=== PATIENT | male | born 1955 | race Caucasian/White ===

== ENCOUNTER 2018-01-18 12:10 | Day surgery (SDC) | payer OTHER ==
[2018-01-18] MEDS: TROPICAMIDE 1% 3 ML OPH OPER (13:17)
[2018-01-18] MEDS: CYCLOPENTOLATE 1% 2 ML OPH OPER (13:17)
[2018-01-18] MEDS: PHENYLephrine 2.5% 15 ML OPH OPER (13:17)
[2018-01-18] MEDS: PROPARACAINE 0.5% 15 ML OPH OPER (13:21)
[2018-01-18] MEDS ORDERED: LIDOCAINE 1%/EPI 30 ML INJ (14:09)
[2018-01-18] MEDS ORDERED: TOBRAMYCIN/DEXAMETH 3.5 GM OPH OINT (14:10)
[2018-01-18] MEDS ORDERED: HYDROmorphONE 1 MG/5 ML IV SYRINGE IV (15:00)
[2018-01-18] MEDS: TOBRAMYCIN/DEXAMETH 3.5 GM OPH OINT OPER (15:56)
[2018-01-18] MEDS: HYDROmorphONE 1 MG/5 ML IV SYRINGE IV (16:28)
== END 2018-01-24 10:43 | disposition home or self-care (01) ==
LOC: SDS 01-24 10:43
DX: H11.032 Double pterygium of left eye (principal); E11.9 Type 2 diabetes mellitus without complications; E78.5 Hyperlipidemia, unspecified; E66.9 Obesity, unspecified; Z68.31 Body mass index [BMI] 31.0-31.9, adult
CPT/HCPCS: 65426; 88305